=== PATIENT | male | born 1945 | race Caucasian/White ===

== ENCOUNTER → 2023-02-11 | Outpatient (CLI) | payer SELFPAY | END | disposition home or self-care (01) | PROVIDERS: Referring Provider Urology; Visit Provider Urology | DX: R97.20 Elevated prostate specific antigen [PSA] (principal) ==

== ENCOUNTER → 2023-03-02 | Outpatient (CLI) | payer SELFPAY, OTHER ==
--- NOTE | 2023-03-02 08:41 | NM_ITS ---
CLINICAL: 77-year-old male with history of primary prostate carcinoma. WHOLE BODY 99m Tc MDP RADIONUCLIDE BONE SCINTIGRAPHY COMPARISON: None available FINDINGS: Following the intravenous administration of 25.1 mCi of 99m Tc MDP, whole body bone images reveal: 1. Multiple foci of increased radiopharmaceutical concentration defined in the thoracic and lumbar spine, bilateral hemipelvis and multiple bilateral ribs, the right proximal humeral metaphysis. 2. Enhanced uptake is visualized in the medial tibial compartments of both knees, lateral tibial compartment of the right knee, the right wrist, the acromioclavicular compartment of the right shoulder, the upper-mid cervical spine. 3. The remaining skeletal structures are scintigraphically unremarkable with normal-appearing renal images and urinary bladder activity identified. NM/Bone Scan Whole Body IMPRESSION: 1. The increase in tracer uptake defined in the thoracic and lumbar spine, right-left hemipelvis, the right proximal humeral metaphysis and bilateral ribs is most consistent with skeletal metastatic disease. 2. Degenerative arthritis is defined in the bilateral knees, the right wrist, the right shoulder and upper-mid cervical spine. Electronically Signed: Sixto Brasher, at 22:03 EDT ,
== END | disposition home or self-care (01) ==
LOC: NM 08:36
PROVIDERS: PCP Nurse Practitioner Family; Referring Provider Urology; Visit Provider Urology
DX: C61 Malignant neoplasm of prostate (principal); R97.20 Elevated prostate specific antigen [PSA]
CPT/HCPCS: 78306; A9503